=== PATIENT | female | born 1960 | race Caucasian/White ===

== ENCOUNTER → 2018-11-28 | Outpatient (CLI) | payer OTHER | LOC: M.RAD 08:20 | DX: Z12.31 Encounter for screening mammogram for malignant neoplasm of breast (principal); R92.8 Other abnormal and inconclusive findings on diagnostic imaging of breast ==

== ENCOUNTER 2018-12-21 20:33 | Emergency (ER) | payer OTHER ==
[~2018-12-21] VITALS: Ht 170.2 cm; Wt 90.7 kg
[2018-12-21] MEDS ORDERED: KLOR-CON 1010 MEQ PO (20:52)
[2018-12-21 21:17] LABS: INFLUENZA A ANTIGEN None Detected (None Detect); INFLUENZA B ANTIGEN None Detected (None Detect)
[2018-12-21] MEDS ORDERED: MEDROLDOSEPACK PO (21:57)
[2018-12-21] MEDS ORDERED: ACETAMINOPHEN-1 EAC1 PO (21:57)
[2018-12-21] MEDS ORDERED: ZPAK PO (21:57)
[2018-12-21 22:11] VITALS: BP 128/85
== END 2018-12-21 22:12 | disposition home or self-care (01) ==
LOC: M.ERS 20:33
PROVIDERS: Nurse Practitioner Family
DX: J20.9 Acute bronchitis, unspecified (principal); F17.200 Nicotine dependence, unspecified, uncomplicated